=== PATIENT | male | born 1995 | race Caucasian/White ===

== ENCOUNTER → 2017-03-02 | Outpatient (CLI) | payer MEDICAID | LOC: FCPNEURO 22:59 | PROVIDERS: ATTEND Student in an Organized Health Care Education/Training Program | DX: G47.61 Periodic limb movement disorder (principal) ==

== ENCOUNTER → 2017-08-16 | Outpatient (CLI) | payer MEDICAID | LOC: FIMAGING 07:25 | PROVIDERS: ATTEND Family Medicine Sports Medicine | DX: M25.852 Other specified joint disorders, left hip (principal); M25.552 Pain in left hip; R93.8 Abnormal findings on diagnostic imaging of other specified body structures ==